=== PATIENT | male | born 1965 | race Caucasian/White ===

== ENCOUNTER 2017-06-12 15:54 | Emergency (ER) | payer BC, MEDICARE ==
[2017-06-12 15:55] VITALS: BMI 26.6
[2017-06-12 17:01] LABS: BASO # 0.1 K/uL (0.0-0.2); BASO % 0.8 % (0.0-2.0); EOS # 0.2 K/uL (0.0-0.7); EOS % 3.4 % (0.0-4.0); HEMOGLOBIN 12.7 g/dL (12.0-18.0); LYMPH # 1.1 K/uL (1.0-4.3); LYMPH % 14.9 % (20.0-40.0); MEAN CELL VOLUME 95.3 fL (80.0-94.0); MEAN CORPUSCULAR HEMOGLOBIN 32.5 pg (27.0-31.0); MEAN CORPUSCULAR HGB CONC 34.1 g/dL (33.0-37.0); MEAN PLATELET VOLUME 10.2 fL (7.2-11.7); MONO # 0.5 K/uL (0.0-0.8); MONO % 6.3 % (0.0-10.0); NEUT # 5.5 K/uL (1.8-7.0); NEUT % 74.6 % (50.0-75.0); RBC 3.9 Mil/uL (4.40-5.90); WHITE BLOOD COUNT 7.4 K/uL (4.8-10.8)
[2017-06-12 17:28] LABS: CK-MB 0.61 ng/mL (0.0-3.38)
[2017-06-12 17:30] LABS: ALB/GLOB RATIO 1.1 (1.0-2.1); ALBUMIN 4.2 g/dL (3.5-5.0); ALT/SGPT 21 U/L (21-72); AST/SGOT 16 U/L (17-59); BLOOD UREA NITROGEN 37 mg/dL (9-20); CALCIUM 8.2 mg/dl (8.6-10.4); GFR AFRICAN-AMERICAN 7; GFR NON-AFRICAN AMERICAN 6
--- NOTE | 2017-06-12 18:23 | C.PDOC ---
Time Seen by Provider: 06/12/17 16:07 Chief Complaint (Nursing): Dizziness/Lightheaded Past Medical History Vital Signs: Last Vital Signs Temp 98.7 F 06/12/17 16:05 Pulse 82 06/12/17 16:05 Resp 14 06/12/17 16:05 BP 172/91 H 06/12/17 16:05 Pulse Ox 100 06/12/17 16:05 - Medical History PMH: HTN, End Stage Renal Disease, Chronic Kidney Disease - [facility] Procedures COLONOSCOPY (10/07/14) HEMODIALYSIS (09/05/12) PACKED CELL TRANSFUSION (09/05/12) - Social History Hx Tobacco Use: No Hx Alcohol Use: No Hx Substance Use: No - Immunization History Hx Tetanus Toxoid Vaccination: Yes Hx Influenza Vaccination: Yes Hx Pneumococcal Vaccination: No ED Course And Treatment - Laboratory Results Result Diagrams: 06/12/17 16:57 06/12/17 16:57 O2 Sat by Pulse Oximetry: 100 Disposition - Disposition
--- NOTE | 2017-06-12 18:26 | C.PDOC ---
History Of Present Illness 52 y/o male with history of CKD, End stage renal disease and HTN sent from dialysis after having 3 episodes of dizziness and lightheadedness 2 hours into dialysis. Patient reports history of similar episodes twice while at dialysis. Patient denies headache, visual changes, chest pain, sob, cough, fever, extremity weakness or sensory changes. No other complaints at this time. Time Seen by Provider: 06/12/17 16:07 Chief Complaint (Nursing): Dizziness/Lightheaded History Per: Patient History/Exam Limitations: no limitations Onset/Duration Of Symptoms: Hrs Current Symptoms Are (Timing): Still Present Activity At Onset Of Symptoms: Sitting Past Medical History Reviewed: Historical Data, Nursing Documentation, Vital Signs Vital Signs: Last Vital Signs Temp 98.7 F 06/12/17 16:05 Pulse 82 06/12/17 16:05 Resp 14 06/12/17 16:05 BP 172/91 H 06/12/17 16:05 Pulse Ox 100 06/12/17 18:28 - Medical History PMH: HTN, End Stage Renal Disease, Chronic Kidney Disease Surgical History: No Surg Hx - [facility] Procedures COLONOSCOPY (10/07/14) HEMODIALYSIS (09/05/12) PACKED CELL TRANSFUSION (09/05/12) - Social History Hx Tobacco Use: No Hx Alcohol Use: No Hx Substance Use: No - Immunization History Hx Tetanus Toxoid Vaccination: Yes Hx Influenza Vaccination: Yes Hx Pneumococcal Vaccination: No Review Of Systems Except As Marked, All Systems Reviewed And Found Negative. Constitutional: Negative for: Fever Cardiovascular: Positive for: Light Headedness. Negative for: Chest Pain Respiratory: Negative for: Cough, Shortness of Breath Neurological: Positive for: Dizziness. Negative for: Headache Physical Exam - Physical Exam Appears: Non-toxic, No Acute Distress Skin: Warm, Dry, No Rash Head: Atraumatic, Normacephalic Eye(s): bilateral: Normal Inspection Oral Mucosa: Moist Neck: Normal ROM, Supple Cardiovascular: Rhythm Regular Respiratory: Normal Breath Sounds, No Rales, No Rhonchi, No Wheezing Extremity: Normal ROM, Capillary Refill (<2 seconds) Neurological/Psych: Oriented x3, Normal Speech, Normal Cognition, Normal Motor, Normal Sensation Gait: Steady ED Course And Treatment - Laboratory Results Result Diagrams: 06/12/17 16:57 06/12/17 16:57 ECG: Interpreted By Me, Viewed By Me ECG Rhythm: Sinus Rhythm Interpretation Of ECG: LVH, QTC 481 milisec. Normal access. No ST/T wave changes Rate From EC (BPM) O2 Sat by Pulse Oximetry: 100 (RA) Pulse Ox Interpretation: Normal - Physician Consult Information Physician Contacted: Praneeth Roy Disposition Counseled Patient/Family Regarding: Studies Performed, Diagnosis, Need For Followup - Disposition Referrals: Oliver Marie MD [Staff Provider] - Disposition: HOME/ ROUTINE Disposition Time: 19:25 Condition: STABLE Additional Instructions: FOLLOW UP WITH YOUR DOCTOR IN 1-2 DAYS RETURN TO ER IF SYMPTOMS WORSEN GO TO YOUR NEXT REGULARLY SCHEDULED DIALYSIS SEGUIMIENTO CON CERVANTES MDICO EN 1-2 ESCOBAR VOLVER A ER SI LOS SNTOMAS EMPEORAN VAYA A CERVANTES PRXIMA DILISIS PROGRAMADA REGULARMENTE Instructions: Dizziness, Nonvertigo, (DC) Forms: Sayah (Greenlandic) Print Language: GRENADIAN - Clinical Impression Clinical Impression: Dizziness, ESRD (end stage renal disease) on dialysis - Scribe Statement The provider has reviewed the documentation as recorded by the Scribraj Ballesteros All medical record entries made by the Scribe were at my direction and personally dictated by me. I have reviewed the chart and agree that the record accurately reflects my personal performance of the history, physical exam, medical decision making, and the department course for this patient. I have also personally directed, reviewed, and agree with the discharge instructions and disposition.
[2017-06-12 19:39] VITALS: BP 169/102; PULSE 86; RESP 18; TEMP 98.4; O2SAT 96
--- NOTE | 2017-06-13 17:09 | CARD ---
APPROVED REPORT EKG Measurement Heart [id number] <Conclusion> Normal sinus rhythm Voltage criteria for left ventricular hypertrophy Prolonged QT Abnormal ECG
== END 2017-06-12 19:38 | disposition home or self-care (01) ==
LOC: C.ER 15:54
DX: R42 Dizziness and giddiness (principal); N18.6 End stage renal disease; Z99.2 Dependence on renal dialysis